=== PATIENT | female | born 1945 | race Caucasian/White ===

== ENCOUNTER 2016-10-02 13:36 | Outpatient (CLI) | payer MEDICARE | END 2016-10-02 13:37 | disposition home or self-care (01) | DX: N20.0 Calculus of kidney (principal) ==

== ENCOUNTER 2017-05-01 15:08 | Outpatient (CLI) | payer MEDICARE ==
--- NOTE | 2017-05-02 11:56 | DEXA Report ---
DEXA SCAN: 05/01/2017 HISTORY: Postmenopausal, osteopenia. TECHNIQUE: Dual energy x-ray absorptiometry (DXA) was performed on a [employer] system. Regions measured are the AP spine, femoral neck, and, if needed, forearm. COMPARISON: None. In accordance with the International Society for Clinical Densitometry (ISCD) guidelines, data from previous exams may be reanalyzed using current recommendations and techniques. This is done to allow a more accurate basis for comparison with the current study. FINDINGS The data for the lumbar spine is as follows: REGION BMD (g/cm/cm) T-SCORE Z-SCORE L1 0.924 -1.7 0.3 L2 1.064 -1.1 0.9 L3 1.152 -0.4 1.6 L4 1.113 -0.7 1.3 TOTAL 1.067 -0.9 1.1 NOTE: All evaluable vertebrae are used for classification. The data for the hip is as follows: REGION BMD (g/cm/cm) T-SCORE Z-SCORE Neck 0.689 -2.5 -0.6 TOTAL 0.740 -2.1 -0.4 NOTE: The femoral neck or total proximal femur, whichever is lowest, is used for classification. IMPRESSION: BONE MINERAL DENSITY IN THE LEFT HIP IS CONSISTENT WITH OSTEOPENIA. FRACTURE RISK IS INCREASED. RECOMMENDATION: Patients with diagnosis of osteoporosis or osteopenia should have regular bone mineral density assessment. For those eligible for Medicare, routine testing is allowed once every 2 years. Testing frequency can be increased for patients who have rapidly progressing disease or for those who are receiving medical therapy to restore bone mass. COMMENT: World Health Organization (WHO) definitions for osteoporosis and osteopenia: NORMAL BMD: T-score at -1.0 or higher, fracture risk is low. OSTEOPENIA BMD: T-score between -1.0 and -2.5, fracture risk is increased. OSTEOPOROSIS BMD: T-score at -2.5 or lower, fracture risk high. National Osteoporosis Foundation recommends: 1. Obtain adequate dietary calcium (at least 1200 mg per day) and vitamin D (400 -800 international units per day). 2. Participate, as appropriate, in regular weightbearing and muscle- strengthening exercise. 3. Avoid tobacco use and reduce alcohol and caffeine intake. 4. For more detailed information see the website at www.NOF.org. MTDD
== END 2017-05-01 15:09 | disposition home or self-care (01) ==
LOC: DI 15:08
PROVIDERS: ATTEND Physician Assistant
DX: M85.88 Other specified disorders of bone density and structure, other site (principal)
CPT/HCPCS: 77080

== ENCOUNTER 2017-05-20 13:45 | Outpatient (CLI) | payer MEDICARE ==
[2017-05-20] MEDS ORDERED: IOPAMIDOL-300 50 ML VIAL ONE (14:00)
[2017-05-20] MEDS ORDERED: IOPAMIDOL-300 100 ML VIAL ONE (14:00)
--- NOTE | 2017-05-21 10:52 | CT Report ---
CT ABDOMEN AND PELVIS WITHOUT CONTRAST: 05/20/2017 CLINICAL INDICATION: Diffuse abdominal pain. COMPARISON: 10/02/2016 TECHNIQUE: Axial CT images of the abdomen and pelvis were obtained without intravenous contrast (pat ient declined). Oral contrast was administered. FINDINGS: Limited evaluation of the lung bases is unremarkable. ABDOMEN: The previously noted 3 mm calcification in the right kidney is stable. No hydronephrosis o r hydroureter is seen. Allowing for the lack of intravenous contrast, the liver, spleen, pancreas, l eft kidney and adrenal glands appear unremarkable. The patient is status post cholecystectomy. No b owel dilatation, free gas, or free fluid is present. No definite abdominal adenopathy is appreciated . PELVIS: The pelvic organs appear unremarkable. No pelvic adenopathy or free fluid is appreciated. Osseous structures demonstrate degenerative changes. IMPRESSION: STABLE 3 MM CALCIFICATION IN THE RIGHT KIDNEY. NO HYDRONEPHROSIS. NO EVIDENT ETIOLOGY FOR PATIENT'S DIFFUSE ABDOMINAL PAIN. In accordance with CT protocol optimization, one or more of the following dose reduction techniques w ere utilized for this exam: automated exposure control, adjustment of mA and/or KV based on patient size, or use of iterative reconstructive technique. JOB #: [id number] EXT JOB #:[id number]
== END 2017-05-20 13:46 | disposition home or self-care (01) ==
LOC: DI 13:45
PROVIDERS: ATTEND Physician Assistant
DX: R10.84 Generalized abdominal pain (principal); N20.0 Calculus of kidney
CPT/HCPCS: 74176; Q9967

== ENCOUNTER 2017-12-03 16:10 | Outpatient (CLI) | payer MEDICARE ==
--- NOTE | 2017-12-04 14:43 | Mammography Report ---
SCREENING DIGITAL MAMMOGRAM: 12/03/2017 CLINICAL INDICATION: A 72-year-old for screening. COMPARISON: 08/2015, 06/2013, 05/2012, 03/2011, 03/2010. FINDINGS: The breasts demonstrate heterogeneously dense fibroglandular parenchyma bilaterally. Coarse and punctate, typically benign calcifications are present. No suspicious masses, clustered microcalcifications, or regions of architectural distortion are identified. IMPRESSION: BENIGN FINDINGS. RECOMMENDATION: Routine annual screening unless otherwise clinically indicated. BIRADS CATEGORY 2 - BENIGN FINDINGS. STANDARD QUALIFYING STATEMENTS 1. This examination was reviewed with the aid of Computed Aided Detection (CAD). 2. A negative x-ray report should not delay biopsy if a dominant or clinically suspicious mass is present. More than 5% of cancers are not identified by x-ray. 3. Dense breasts may obscure an underlying neoplasm. TD: 12/04/2017 14:42 MTDD
== END 2017-12-03 16:11 | disposition home or self-care (01) ==
LOC: DI 16:10
PROVIDERS: ATTEND Internal Medicine
DX: Z12.31 Encounter for screening mammogram for malignant neoplasm of breast (principal)
CPT/HCPCS: 77067

== ENCOUNTER 2018-04-25 09:50 | Outpatient (CLI) | payer MEDICARE ==
[2018-04-25] MEDS ORDERED: IOPAMIDOL-300 50 ML VIAL ONE (09:53)
[2018-04-25] MEDS ORDERED: IOPAMIDOL-300 100 ML VIAL ONE ×2 (09:53→11:17)
[2018-04-25] MEDS ORDERED: IOPAMIDOL-300 50 ML VIAL PO ONE (13:10)
[2018-04-25] MEDS ORDERED: IOPAMIDOL-300 100 ML VIAL IVP ONE (13:10)
--- NOTE | 2018-04-25 15:10 | CT Report ---
Reason: ABDOMINAL PAIN,WT LOSS Procedure Date: 04/25/2018 Accession Number: [id number] / [id number] Procedure: CT - Abdomen/Pelvis W/ CPT Code: FULL RESULT: EXAM: CT ABDOMEN AND PELVIS EXAM DATE: 04/25/2018 01:37 PM. CLINICAL HISTORY: ABDOMINAL Pain, wt LOSS. COMPARISONS: None. TECHNIQUE: Routine helical CT imaging was performed through the abdomen and pelvis. IV contrast: None. Enteric contrast: Yes. Reconstructions: Coronal and sagittal. In accordance with CT protocol optimization, one or more of the following dose reduction techniques were utilized for this exam: automated exposure control, adjustment of mA and/or KV based on patient size, or use of iterative reconstructive technique. FINDINGS: Lung Bases: Unremarkable. Liver: Normal contour. No masses. Gallbladder/Bile Ducts: Cholecystectomy is noted.4 Spleen: Normal. Pancreas: Normal. Adrenal Glands: Normal. Kidneys: There is a likely 2 mm mid right renal stone. No masses or hydronephrosis. Peritoneal Cavity/Bowel: No free fluid, free air or adenopathy. No masses or acute inflammatory process. Pelvic Organs: The bladder and visualized pelvic organs appear within normal limits. Vasculature: No aneurysms or other significant abnormality. Bones: Sclerotic focus in the right bony pelvis is likely a bone island. Otherwise no bone lesions. IMPRESSION: Likely 2 mm nonobstructive right renal stone. Otherwise negative non-IV contrast abdomen and pelvis CT. RADIA
== END 2018-04-25 09:51 | disposition home or self-care (01) ==
LOC: DI 09:50
PROVIDERS: ATTEND Physician Assistant
DX: R10.9 Unspecified abdominal pain (principal); R63.4 Abnormal weight loss
CPT/HCPCS: 74177; Q9967

== ENCOUNTER 2018-11-28 01:30 | Emergency (ER) | payer MEDICARE ==
--- NOTE | 2018-11-28 01:47 | ED Physician Documentation ---
History of Present Illness - Stated complaint Stated Complaint: BLEEDING/POST OP - History obtained from History obtained from: Patient - History of Present Illness Timing: Today Pain level max: 0 Pain level now: 0 - Additonal information Additional information: Patient had colonoscopy at 2:30 this afternoon at the [facility]. Tonight, she had passed gas and this was associated with passage of bright red blood. She had a second such episode and was advised by an after hours advice line to come to the emergency department. Shes otherwise asymptomatic Review of Systems Constitutional: reports: Reviewed and negative Cardiac: reports: Reviewed and negative Respiratory: reports: Reviewed and negative GI: reports: Other (BRBPR). denies: Abdominal Pain, Abdominal Swelling, Nausea, Vomiting, Constipation, Diarrhea, Hematemesis PD PAST MEDICAL HISTORY - Past Medical History Cardiovascular: None Endocrine/Autoimmune: None GI: Other : Incontinence, Chronic bladder infection, Frequency, Kidney stones, Other HEENT: None Psych: Anxiety Derm: None - Allergies Allergies/Adverse Reactions: Allergies Allergy/AdvReac Type Severity Reaction Status Date / Time levofloxacin [From Levaquin] Allergy Rash Verified 11/28/18 01:56 Penicillins Allergy Rash Verified 11/28/18 01:56 Sulfa (Sulfonamide Allergy Rash Verified 11/28/18 01:56 Antibiotics) - Social History Smoking Status: Unknown if ever smoked PD ED PE NORMAL - Vitals Vital signs reviewed: Yes - General General: Alert and oriented X 3, No acute distress, Well developed/nourished - Cardiac Cardiac: RRR, No murmur - Respiratory Respiratory: No respiratory distress, Clear bilaterally - Abdomen Abdomen: Soft, Non tender, Non distended PD ED PE EXPANDED - Rectal Rectal: Heme Occult Pos - QC +, Hemorrhoid, Welder Repair present, Other (Small hemorrhoid without bleeding. No visible bleeding, faint guaiac (+) with hemoccult) Results - Vitals Vitals: Oxygen O2 Source Room air - Labs Labs: Laboratory Tests 11/28/18 11/28/18 01:45 02:40 Hgb 11.8 L Hct 35.2 L Urine Color YELLOW Urine Clarity CLEAR Urine pH 7.0 Ur Specific [place] <=1.005 Urine Protein NEGATIVE Urine Glucose (UA) NEGATIVE Urine Ketones NEGATIVE Urine Occult Blood SMALL H Urine Nitrite NEGATIVE Urine Bilirubin NEGATIVE Urine Urobilinogen 0.2 (NORMAL) Ur Leukocyte Esterase TRACE H Urine RBC 0-5 Urine WBC 0-3 Ur Squamous Epith Cells MOD Squamous H Urine Bacteria Rare Ur Microscopic Review INDICATED Urine Culture Comments NOT INDICATED PD MEDICAL DECISION MAKING - ED course Complexity details: reviewed results, re-evaluated patient, considered differential, d/w patient Departure - Departure Disposition: 01 Home, Self Care Clinical Impression: Lower GI bleed Condition: Good Instructions: ED Hematochezia Stable Follow-Up: GAIL CLEMENTE MD [Primary Care Provider] - Comments: I recommend that you contact the corporate ethics officer's office this morning when they open to get their recommendation regarding follow-up. It will likely depend on how much more, if any, bleeding you have, as well as whether you have symptoms and whether they are concerned about your test results tonight (they can compare to your most recent results). Discharge Date/Time: 11/28/18 03:46
[2018-11-28 02:05] LABS: BILIRUBIN,URINE NEGATIVE (NEGATIVE); GLUCOSE, URINE (UA) NEGATIVE (NEGATIVE); KETONES,URINE (UA) NEGATIVE (NEGATIVE); LEUKOCYTE ESTERASE, URINE TRACE (NEGATIVE); NITRITE,URINE NEGATIVE (NEGATIVE); OCCULT BLOOD,URINE SMALL (NEGATIVE); PROTEIN,URINE NEGATIVE (NEGATIVE); UROBILINOGEN,URINE 0.2 (NORMAL) E.U./dL (NORMAL)
[2018-11-28 02:07] LABS: CLARITY,URINE CLEAR (CLEAR)
[2018-11-28 02:11] LABS: BACTERIA,URINE Rare /HPF (None Seen); RBC,URINE 0-5 /HPF (0-5); SQUAMOUS EPITHELIAL CELL,UR MOD Squamous (<= Few)
[2018-11-28 02:48] LABS: HGB - HEMOGLOBIN 11.8 g/dL (12.0-16.0)
[2018-11-28 03:27] VITALS: BP 141/65
== END 2018-11-28 03:46 | disposition home or self-care (01) ==
LOC: ED 01:30
DX: K62.5 Hemorrhage of anus and rectum (principal); K64.9 Unspecified hemorrhoids; Z98.890 Other specified postprocedural states
CPT/HCPCS: 36415; 81001; 81003; 85014; 85018; 87086; 99283

== ENCOUNTER 2019-01-14 15:55 | Outpatient (CLI) | payer MEDICARE ==
--- NOTE | 2019-01-14 16:33 | XRAY Report ---
Reason: ABNORMAL WEIGHT LOSS Procedure Date: 01/14/2019 Accession Number: [id number] / [id number] Procedure: XR - Chest 2 View X-Ray CPT Code: 34225 FULL RESULT: EXAM: CHEST RADIOGRAPHY EXAM DATE: 01/14/2019 04:02 PM. CLINICAL HISTORY: Abnormal weight loss. COMPARISON: 11/18/2015 3:43 PM. TECHNIQUE: 2 views. FINDINGS: Lungs/Pleura: Slightly coarse lung markings and hyperinflation is seen which may represent COPD changes. There is no consolidation, effusion, or pneumothorax. No vascular congestion. Mediastinum: Heart and mediastinal contours are notable for aortic calcification. Other: Mild pectus deformity is seen. IMPRESSION: No acute cardiopulmonary abnormality demonstrated. RADIA
== END 2019-01-14 15:56 | disposition home or self-care (01) ==
LOC: DI 15:55
PROVIDERS: ATTEND Internal Medicine
DX: R63.4 Abnormal weight loss (principal)
CPT/HCPCS: 71046

== ENCOUNTER 2019-01-22 10:22 | Outpatient (CLI) | payer MEDICARE ==
[2019-01-27 15:06] LABS: ZINC, PLASMA 55 mcg/dL (60-130)
[2019-01-27 17:06] LABS: COPPER 99 mcg/dL (70-175)
== END 2019-01-22 10:23 | disposition home or self-care (01) ==
LOC: LAB.F 10:22
PROVIDERS: ATTEND Internal Medicine
DX: E83.9 Disorder of mineral metabolism, unspecified (principal); E72.11 Homocystinuria
CPT/HCPCS: 36415; 81291; 81599; 82525; 83090; 84630

== ENCOUNTER 2019-05-29 08:00 | Outpatient (CLI) | payer MEDICARE ==
[2019-05-30 09:39] LABS: TRICHOMONAS VAGINALIS DNA POSITIVE (NEGATIVE)
== END 2019-05-29 23:59 | disposition home or self-care (01) ==
LOC: LAB.R 08:00
PROVIDERS: ATTEND Obstetrics & Gynecology
DX: Z11.3 Encounter for screening for infections with a predominantly sexual mode of transmission (principal)
CPT/HCPCS: 87491; 87591; 87661

== ENCOUNTER 2019-05-29 23:08 | Emergency (ER) | payer MEDICARE ==
--- NOTE | 2019-05-29 23:18 | ED Physician Documentation ---
History of Present Illness - Stated complaint Stated Complaint: HIGH BLOOD PRESSURE - Chief complaint Chief Complaint: Cardiac - Additonal information Additional information: This is a 73-year-old female who presents with elevated blood pressure. She was at her OB provider for a general checkup today, in office she was noted to have an elevated blood pressure in the range of 150-170 systolic. Her OB wanted to start her on a blood pressure medication, but patient did not want to at that time, so her OB recommended that she take her blood pressure again and if it is still high she should see her primary care provider or the emergency department. She took it tonight and it was elevated again in the 170s systolic so she came into the emergency department. She denies chest pain, shortness of breath, or any new symptoms. She does have a little bit of soreness in the base of her neck which is been ongoing for weeks, No severe headache, no weakness or numbness, no confusion or vision changes. She has had an MRI scan recently for Chronic vertigo which did not show signs of stroke according to patient. 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 - Allergies Allergies/Adverse Reactions: Allergies Allergy/AdvReac Type Severity Reaction Status Date / Time levofloxacin [From Levaquin] Allergy Rash Verified 05/29/19 23:12 Penicillins Allergy Rash Verified 05/29/19 23:12 Sulfa (Sulfonamide Allergy Rash Verified 05/29/19 23:12 Antibiotics) - Social History Does the pt smoke?: No Smoking Status: Unknown if ever smoked Does the pt drink ETOH?: No Does the pt have substance abuse?: No - Immunizations Immunizations are current?: No Immunizations: No immun - POLST Patient has POLST: No PD ED PE NORMAL - Vitals Vital signs reviewed: Yes - General General: Alert and oriented X 3, No acute distress - HEENT HEENT: PERRL - Neck Neck: Supple, no meningeal sign - Cardiac Cardiac: RRR - Respiratory Respiratory: Clear bilaterally - Abdomen Abdomen: Soft, Non tender, Non distended - Derm Derm: Warm and dry - Extremities Extremities: No deformity - Neuro Neuro: Alert and oriented X 3, drop wire builder 2-12 intact, No motor deficit, No sensory deficit, Normal speech - Psych Psych: Normal mood, Normal affect Results - Vitals Vitals: Vital Signs - 24 hr 05/29/19 05/29/19 05/29/19 23:12 23:29 23:48 Temperature 36.9 C Heart Rate 74 81 74 Respiratory 16 16 Rate Blood Pressure 173/71 H 181/81 H 173/80 H O2 Saturation 100 100 100 Oxygen O2 Source Room air PD MEDICAL DECISION MAKING - ED course Complexity details: considered differential (Hypertension, hypertensive urgency, hypertensive emergency) ED course: Patient presents with asymptomatic hypertension. She presents today because her OB provider told her to be seen if her blood pressure remains elevated. At its highest her systolic blood pressure has been in the 170s, on my examination it is in the 150s. Patient has no signs of hypertensive emergency, no chest pain or shortness of breath or abdominal pain or confusion or vision changes. She does have a slight headache at the base of her neck on the right, but this has been chronic, and she recently had MRI imaging which is not show any emergent findings, and I do not feel that any further work-up or imaging is necessary today. I recommended the patient log her blood pressure several times a day, and follow-up with her primary care provider to discuss starting a antihypertensive if needed. I also discussed return precautions including any neurologic symptoms such as chest pain, shortness of breath or other concerning symptoms. Patient was discharged home in care of her partner. Departure - Departure Disposition: 01 Home, Self Care Clinical Impression: Hypertension Qualifiers: Hypertension type: unspecified Qualified Code(s): I10 - Essential (primary) hypertension Condition: Good Follow-Up: ANGEL DELGADO ARNP [Primary Care Provider] - Within 1 week (For follow up on blood pressure and discussion of whether to start a medication) Comments: You were seen today for elevated blood pressure. Please log your blood pressure 3 times a day, and make appointment with your primary care provider in the next week to review your blood pressure. If it is consistently elevated you may need to start a medication for this. If you develop severe headache, chest pain, trouble breathing, confusion, or any other concerning symptoms, please return to the emergency department. Discharge Date/Time: 05/30/19 00:00
[2019-05-29 23:49] VITALS: BP 173/80
== END 2019-05-30 | disposition home or self-care (01) ==
LOC: ED 23:08
DX: I10 Essential (primary) hypertension (principal); R51 Headache
CPT/HCPCS: 99282; 99284

== ENCOUNTER 2019-06-10 14:24 | Outpatient (CLI) | payer MEDICARE ==
--- NOTE | 2019-06-12 16:08 | DEXA Report ---
Reason: OSTEOPOROSIS Procedure Date: 06/10/2019 Accession Number: [id number] / [id number] Procedure: DEX - Dexa Spine and/or Hip CPT Code: Final Report FULL RESULT: EXAM: Dexa Spine and/or Hip DATE: 06/10/2019 3:04 PM CLINICAL HISTORY: Osteopenia follow-up TECHNIQUE: Dual energy x-ray absorptiometry (DXA) was performed on a [employer] System. Regions measured are the AP Spine, femoral neck, and if needed forearm. COMPARISON: 05/01/2017 In accordance with the International Society for Clinical Densitometry (ISCD) guidelines, data from previous exams may be reanalyzed using current recommendations and techniques. This is done to allow a more accurate basis for comparison with the current study. FINDINGS: The data for the lumbar spine is as follows: BMD (g/cm/cm) T-SCORE Z-SCORE REGION L1 0.889 -2.0 0.4 L2 1.063 -1.1 1.2 L3 1.207 0.1 2.4 L4 1.133 -0.6 1.8 TOTAL 1.081 -0.8 1.5 NOTE: All evaluable vertebrae are used for classification The data for the hip is as follows: BMD (g/cm/cm) T-SCORE Z-SCORE REGION Neck 0.634 -2.9 -0.7 TOTAL 0.673 -2.7 -0.6 NOTE: The femoral neck or total proximal femur, whichever is lowest, is used for classification. DXA RESULTS SUMMARY: Spine SCAN DATE AGE BMD CHANGE VS CHANGE VS PREVIOUS PREVIOUS % 8[birth year]10/2019 [age] 1.081 0.014 1.3 05/01/2017 [age] 1.067 * Denotes significant change at the 95% confidence level. Denotes dissimilar scan types or analysis methods. DXA RESULTS SUMMARY: Hip SCAN DATE AGE BMD CHANGE VS CHANGE VS PREVIOUS PREVIOUS % [birth year]10[birth year]2019 74.0 0.673 -0.067* -9.1* 05[birth year]01/2017 [age] 0.740 * Denotes significant change at the 95% confidence level. Denotes dissimilar scan types or analysis methods. IMPRESSION: THE WHO CLASSIFICATION BASED ON THE INTERNATIONAL REFERENCE STANDARD IS OSTEOPOROSIS, REFERENCE LEFT FEMORAL NECK. THE FRACTURE RISK IS HIGH. THERE HAS BEEN A STATISTICALLY SIGNIFICANT 9.1% DECREASE IN TOTAL LEFT HIP BONE MINERAL DENSITY SINCE 05/01/2017. RECOMMENDATION: Patients with diagnosis of osteoporosis or osteopenia should have regular bone mineral density assessment. For those eligible for Medicare, routine testing is allowed once every 2 years. Testing frequency can be increased for patients who have rapidly progressing disease or for those who are receiving medical therapy to restore bone mass. COMMENT: World Health Organization (WHO) definitions for osteoporosis and osteopenia: NORMAL BMD: T-score at -1.0 or higher, fracture risk is low OSTEOPENIA BMD: T-score between -1.0 and -2.5, fracture risk is increased. OSTEOPOROSIS BMD: T-score at -2.5 or lower, fracture risk is high. National Osteoporosis Foundation recommends: 1. Obtain adequate dietary calcium (at least 1200 mg per day) and vitamin D (400-800 international units per day). 2. Participate, as appropriate, in regular weightbearing and muscle-strengthening exercise. 3. Avoid tobacco use and reduce alcohol and caffeine intake. 4. For more detailed information see the website at www.NOF.org.
== END 2019-06-10 14:25 | disposition home or self-care (01) ==
LOC: DI 14:24
PROVIDERS: ATTEND Physician Assistant
DX: M81.0 Age-related osteoporosis without current pathological fracture (principal)
CPT/HCPCS: 77080

== ENCOUNTER 2019-07-04 13:46 | Outpatient (CLI) | payer MEDICARE ==
--- NOTE | 2019-07-04 19:53 | CT Report ---
Reason: CHRONIC SINUSITIS, HEADACHE Procedure Date: 07/04/2019 Accession Number: [id number] / [id number] Procedure: CT - Sinuses CPT Code: Final Report FULL RESULT: EXAM: CT SINUS EXAM DATE: 07/04/2019 02:00 PM. HISTORY: 74-year-old presenting with chronic sinusitis-type symptoms and headache. Evaluate for intracranial pathology. COMPARISONS: None. TECHNIQUE: Routine multi-axial CT imaging performed through the sinuses. Iodinated IV contrast: None. Reconstructions: Multiplanar reformats. In accordance with CT protocol optimization, one or more of the following dose reduction techniques were utilized for this exam: automated exposure control, adjustment of mA and/or KV based on patient size, or use of iterative reconstructive technique. FINDINGS: RIGHT Frontal: Normal. Ethmoid: Normal. Maxillary: Normal. Sphenoid: Normal. Drainage Pathways: The frontal recess, ostiomeatal complex and sphenoethmoidal recess are patent and normal. LEFT Frontal: Normal. Ethmoid: Small volume frothy material seen within a posterior left ethmoid air cell. Maxillary: Normal. Sphenoid: Normal. Drainage Pathways: The frontal recess, ostiomeatal complex and sphenoethmoidal recess are patent and normal. Nasal Cavity: Normal. No mass or significant anatomic abnormality evident. Osseous Structures: Unremarkable. Orbits: Unremarkable. Other: None. IMPRESSION: 1. Small volume frothy material seen within a posterior left ethmoid air cell that may represent acute sinusitis in the appropriate clinical setting. 2. Visualized major paranasal sinus drainage pathways appear patent. RADIA
== END 2019-07-04 13:47 | disposition home or self-care (01) ==
LOC: DI 13:46
PROVIDERS: ATTEND Otolaryngology
DX: J32.8 Other chronic sinusitis (principal); R51 Headache
CPT/HCPCS: 70486

== ENCOUNTER 2019-07-17 08:00 | Outpatient (CLI) | payer MEDICARE ==
[2019-07-17 21:35] LABS: CANDIDA GROUP DNA NEGATIVE (NEGATIVE); CANDIDA KRUSEI DNA NEGATIVE (NEGATIVE); TRICHOMONAS VAGINALIS DNA NEGATIVE (NEGATIVE)
[2019-07-17 22:39] LABS: TRICHOMONAS VAGINALIS DNA NEGATIVE (NEGATIVE)
== END 2019-07-17 23:59 | disposition home or self-care (01) ==
LOC: LAB.R 08:00
PROVIDERS: ATTEND Obstetrics & Gynecology
DX: Z11.3 Encounter for screening for infections with a predominantly sexual mode of transmission (principal); N95.2 Postmenopausal atrophic vaginitis
CPT/HCPCS: 87491; 87591; 87661; 87801

== ENCOUNTER 2019-07-22 15:38 | Outpatient (CLI) | payer MEDICARE ==
--- NOTE | 2019-07-23 08:53 | XRAY Report ---
Reason: OTHER SPECIFIED RESPIRATORY DISORDERS Procedure Date: 07/22/2019 Accession Number: [id number] / [id number] Procedure: XRS - Chest 2 View X-Ray CPT Code: 02812 Final Report FULL RESULT: EXAM: CHEST RADIOGRAPHY EXAM DATE: 07/22/2019 03:51 PM. CLINICAL HISTORY: Other specified respiratory disorders. COMPARISON: CHEST 2 VIEW 01/14/2019 3:50 PM. TECHNIQUE: 2 views. FINDINGS: Lungs/Pleura: New mild perihilar bronchial wall thickening bilaterally is noted. Otherwise, mild to moderate emphysematous lungs without new focal opacities evident. No pleural effusion. No pneumothorax. Mediastinum: Heart and mediastinal contours are unremarkable. Other: Mild pectus excavatum is again noted, similar to the prior exam. IMPRESSION: New mild perihilar bronchial wall thickening bilaterally, suggesting bronchitis; otherwise, negative for pneumonia or acute cardiopulmonary process. RADIA
== END 2019-07-22 15:39 | disposition home or self-care (01) ==
LOC: DI.S 15:38
PROVIDERS: ATTEND Registered Nurse
DX: J98.8 Other specified respiratory disorders (principal)
CPT/HCPCS: 71046

== ENCOUNTER 2020-03-31 13:08 | Outpatient (CLI) | payer MEDICARE | END 2020-03-31 13:09 | disposition home or self-care (01) | LOC: COV 13:08 | PROVIDERS: ATTEND Family Medicine | DX: R05 Cough (principal); M79.10 Myalgia, unspecified site; R53.83 Other fatigue; R68.83 Chills (without fever); J02.9 Acute pharyngitis, unspecified; Z20.828 Contact with and (suspected) exposure to other viral communicable diseases ==

== ENCOUNTER 2020-06-01 06:40 | Outpatient (CLI) | payer MEDICARE ==
--- NOTE | 2020-06-01 08:14 | Ultrasound Report ---
PROCEDURE: Abdomen Limited INDICATIONS: RUQ PAIN TECHNIQUE: Real-time focused scanning was performed of the abdomen, with image documentation. COMPARISON: CT abdomen FINDINGS: The liver is normal in size, and appears relatively coarse in echotexture likely reflectin g fatty infiltration or mild cirrhotic change. Prior cholecystectomy. Bile ducts are normal in calibe r when this is taken into account with the common duct measuring up to 6.7 mm. Pancreas visualized ap pears normal. Right kidney appears normal. IMPRESSION: Source of current symptomatology is not found. Chronic appearing mild increased echotexture of the li mindy parenchyma perhaps reflecting fatty infiltration versus mild sclerosis. No definite acute disease . Reviewed by: Aakash Lane MD on 06/01/2020 8:12 AM PDT Approved by: Aakash Lane MD on 06/01/2020 8:12 AM PDT Station ID: [id number]
== END 2020-06-01 06:41 | disposition home or self-care (01) ==
LOC: DI 06:40
PROVIDERS: ATTEND Nurse Practitioner Family
DX: R93.2 Abnormal findings on diagnostic imaging of liver and biliary tract (principal)
CPT/HCPCS: 76705

== ENCOUNTER 2020-08-06 15:47 | Outpatient (CLI) | payer MEDICARE | END 2020-08-06 15:48 | disposition home or self-care (01) | LOC: LAB.N 15:47 | PROVIDERS: ATTEND Physician Assistant Medical | DX: B34.9 Viral infection, unspecified (principal); Z20.828 Contact with and (suspected) exposure to other viral communicable diseases ==

== ENCOUNTER 2021-08-27 13:09 | Outpatient (CLI) | payer MEDICARE ==
--- NOTE | 2021-08-29 08:20 | Mammography Report ---
BILATERAL DIGITAL SCREENING MAMMOGRAM 3D/2D WITH EXAGGERATED CC: 08/27/2021 CLINICAL: Routine screening. Comparison is made to exams dated: 08/30/2015 mammogram and 06/23/2013 mammogram - [facility]. There are scattered fibroglandular elements in both breasts. No significant masses, calcifications, or other findings are seen in either breast. There has been no significant interval change. IMPRESSION: NEGATIVE There is no mammographic evidence of malignancy. A 1 year screening mammogram is recommended. This exam was interpreted at Station ID: [id number]. NOTE: For mammograms, a report in lay terms will be sent to the patient. Approximately 15% of breast malignancies will not be visualized mammographically. In the management of a palpable breast mass, a negative mammogram must not discourage biopsy of a clinically suspicious lesion. Electronically Signed By: Rubio Rodas M.D. aty/penrad:08/28/2021 07:23:29 ACR BI-RADS Category 1: Negative 3341F PARENCHYMAL PATTERN: (A) - The breast(s) demonstrate(s) scattered fibroglandular densities. BI-RADS CATEGORY: (1) - 1 RECOMMENDATION: (ANNUAL) - Recommend routine annual screening mammography. [id number] 1 year screening LATERALITY: (B)
== END 2021-08-27 13:10 | disposition home or self-care (01) ==
LOC: DI.S 13:09
PROVIDERS: ATTEND Registered Nurse
DX: Z12.31 Encounter for screening mammogram for malignant neoplasm of breast (principal)

== ENCOUNTER 2021-08-30 15:49 | Outpatient (CLI) | payer MEDICARE ==
--- NOTE | 2021-08-30 17:14 | DEXA Report ---
PROCEDURE: Dexa Spine and/or Hip INDICATIONS: OSTEOPOROSIS TECHNIQUE: Dual energy x-ray absorptiometry (DXA) was performed on a [employer] System. Regions measur ed are the AP Spine, femoral neck, and if needed forearm. COMPARISON: 06/10/2019 FINDINGS: Lumbar Spine: Bone Mineral Density 1.067 g/cm/cm,T score -0.9, normal bone mineral density Left Hip: Bone Mineral Density 0.678 g/cm/cm,T score -2.6, osteoporosis Left Femoral Neck: Bone Mineral Density 0.615 g/cm/cm, T score -3.0, osteoporosis (T score greater or equal to -1.0: NORMAL) (T score from -1.1 to -2.4: OSTEOPENIA) (T score less than or equal to -2.5 to: OSTEOPOROSIS) Impression: OSTEOPOROSIS. Patient is at high risk for fracture. Patients with diagnosis of osteoporosis or osteopenia should have regular bone mineral density assess ment. For those eligible for Medicare, routine testing is allowed once every 2 years. Testing frequ ency can be increased for patients who have rapidly progressing disease or for those who are receivin g medical therapy to restore bone mass. Reviewed by: Rubio Rodas MD on 08/30/2021 5:13 PM PST Approved by: Rubio Rodas MD on 08/30/2021 5:13 PM PST Station ID: [id number]
== END 2021-08-30 15:50 | disposition home or self-care (01) ==
LOC: DI 15:49
PROVIDERS: ATTEND Registered Nurse
DX: M81.0 Age-related osteoporosis without current pathological fracture (principal)

== ENCOUNTER 2021-12-06 15:21 | Outpatient (CLI) | payer MEDICARE ==
--- NOTE | 2021-12-06 16:50 | XRAY Report ---
PROCEDURE: Foot 3 View LT INDICATIONS: PAIN IN LEFT FOOT TECHNIQUE: 3 views of the foot were acquired. COMPARISON: None FINDINGS: Bones: No fractures or dislocations. No suspicious bony lesions. Large plantar calcaneal bone spur. Soft tissues: No tibiotalar joint effusion. Achilles tendon appears normal. IMPRESSION: No fracture. No acute osseous lesion. If symptoms and/or clinical concern for pathology persists, fur ther assessment with repeat plain film radiographs (7-10 days) or advanced imaging (CT, MR, bone scan ) should be considered. Reviewed by: Elen Davis MD, PhD on 12/06/2021 4:48 PM PDT Approved by: Elen Davis MD, PhD on 12/06/2021 4:48 PM PDT Station ID: [id number]
--- NOTE | 2021-12-06 16:51 | XRAY Report ---
PROCEDURE: Ankle 3 View LT INDICATIONS: PAIN IN LEFT ANKLE AND JOINTS TECHNIQUE: 3 views of the ankle were acquired. COMPARISON: None FINDINGS: Bones: No fractures or dislocations. Ankle mortise is normally aligned. No suspicious bony lesions . Large plantar calcaneal bone spur. Mild tibiotalar midfoot osteophytosis. Soft tissues: No tibiotalar joint effusion. Achilles tendon appears normal. IMPRESSION: No acute osseous lesion. If symptoms and/or clinical concern for pathology persists, further assessme nt with repeat plain film radiographs (7-10 days) or advanced imaging (CT, MR, bone scan) should be c onsidered. Reviewed by: Elen Davis MD, PhD on 12/06/2021 4:49 PM PDT Approved by: Elen Davis MD, PhD on 12/06/2021 4:49 PM PDT Station ID: [id number]
== END 2021-12-06 15:22 | disposition home or self-care (01) ==
LOC: DI.S 15:21
PROVIDERS: ATTEND Nurse Practitioner Family
DX: M79.672 Pain in left foot (principal); M25.572 Pain in left ankle and joints of left foot

== ENCOUNTER 2022-08-24 14:27 | Emergency (ER) | payer MEDICARE ==
[2022-08-24 14:42] VITALS: BP 165/85
== END 2022-08-24 15:22 | disposition left against medical advice (07) ==
LOC: ED 14:27
DX: Z53.29 Procedure and treatment not carried out because of patient's decision for other reasons (principal)

== ENCOUNTER 2023-03-08 10:39 | Outpatient (CLI) | payer MEDICARE ==
--- NOTE | 2023-03-08 10:38 | SLEEP CARE CONSULTATION ---
Information from patient questionnaire entered by Kelli Gold. I have reviewed and concur with the information entered by Kelli Gold. This document represents the service I personally performed and the decisions made by me, Nandini Yancey ARNP. History of Present Illness Service Date and Time: 03/08/2023 1020 Reason for follow up: other (7MONTH F/U NO CPAP NO SLEEP STUDY) Prior sleep studies: No HPI additional information: I had the pleasure of seeing ALVERTO ORTIZ today via video telehealth visit regarding the possibility of her having a sleep disorder. Her current complaints are excessive daytime sleepiness, fatigue and frequent night awakenings. She has a history of Parkinson's, anxiety and depression. The patient tells me that she normally goes to bed around 11 pm-12 am, and it takes her approximately 5 minutes to fall asleep. She states she sleep alone and has not been told she snores. She has not been observed to stop breathing in her sleep. She can recall waking up on the average of 3-4 times during the night. Most of the time she wakes up because of bathroom. She has not awakened for her own snoring, choking, and having to gasp for air. There is a lot of tossing and turning in her sleep. Generally she can recall having dreams. She usually wakes up at 0600 to take meds and goes back to sleep until 0800 and does not feel refreshed. She usually does not have a morning headache. During the day she complains of feeling sleepy and fatigued. She has never fallen asleep while driving nor has any accident due to sleepiness. She does occasionally have drowsy driving. She usually naps for about 15-20 minutes at 10 AM and 1-1.5 hours around 2 PM, twice during the day. If she naps, upon falling asleep during the day she denies having vivid dreams. She reports having impaired concentration during the day. There is somniloquy (sleep talking) but no somnambulism (sleep walking). She has never experienced sleep paralysis, cataplexy, or symptoms of restless leg syndrome. Sleep Study - Results Prior sleep studies: No Subjective Initial [place] Sleepiness Scale score: 15 (07/10/2022) Current [place] Sleepiness Scale score: 19 (03/08/23) Allergies and Home Medications Known drug allergies: Yes (as listed) Drug allergies reviewed: Yes Home medication list reviewed: Yes (no changes) Allergy and home medication list: Allergies ciprofloxacin [From Cipro] Allergy (Verified 03/07/23 14:49) Itching gluten Allergy (Verified 03/07/23 14:49) Cramps levofloxacin [From Levaquin] Allergy (Verified 03/07/23 14:49) Rash Penicillins Allergy (Verified 03/07/23 14:49) Rash soy Allergy (Verified 03/07/23 14:49) Cramps Sulfa (Sulfonamide Antibiotics) Allergy (Verified 03/07/23 14:49) Rash Review of Systems Review of systems same as previous: Yes (no changes) Physical Exam Vital signs obtained and entered by: KELLI Fields MA Height: 5 ft 1.5 in (PER PT) Weight: 118 lb (PER PT) Body Mass Index: 21.9 BMI Classification: Normal Impression and Plan 1. Suspected Obstructive Sleep Apnea-Hypopnea Syndrome, as suggested by a history of frequent awakening during the night, unrefreshed sleep, cognitive impairment, and excessive daytime sleepiness. Narrow oropharynx and obesity are common predisposing factors for obstructive sleep apnea-hypopnea syndrome. I recommend proceeding to polysomnography to confirm the diagnosis and to assess severity. If the patient has significant sleep disordered breathing, a manual CPAP titration study will also be performed to find the optimal treatment pressure. I informed the patient of what the sleep studies involve and after some discussion, obtained agreement to proceed. The pathophysiology of obstructive sleep apnea-hypopnea syndrome was discussed with the patient and health risks of cardiovascular and cerebrovascular disease if not treated. Risks of drowsy driving discussed in detail and patient advised to avoid long distance driving and to well puller at the first sign of drowsiness. Patient agreed to plan. * Schedule polysomnography. * Avoid long distance driving or driving when feeling sleepy. * Avoid alcohol, sedative and muscle relaxant around bedtime. * Review instructions provided by trained office staff on how to prepare for the sleep study. * Return for follow-up after sleep study completed. Visit Type: Telehealth Video Video Type: Doximity Patient Location: Home Location of Provider: Office Patient agrees and consents to this telehealth visit type: Yes Patient agrees to have their insurance billed: Yes Time Spent with Patient (minutes): 20 Provider Statement: I spent 100% of the Telehealth Video Call with the patient with greater than 50% spent counseling the patient and coordination of care.
== END 2023-03-08 10:40 | disposition home or self-care (01) ==
LOC: SC 10:39
PROVIDERS: ATTEND Nurse Practitioner Family
DX: G47.10 Hypersomnia, unspecified (principal); R53.83 Other fatigue; G47.8 Other sleep disorders; G20 Parkinson's disease; F41.9 Anxiety disorder, unspecified; F32.A Depression, unspecified; R41.89 Other symptoms and signs involving cognitive functions and awareness

== ENCOUNTER 2023-04-01 19:17 | Outpatient (CLI) | payer MEDICARE | END 2023-04-01 19:18 | disposition home or self-care (01) | LOC: SC 19:17 | PROVIDERS: ATTEND Nurse Practitioner Family | DX: I47.1 Supraventricular tachycardia (principal) | CPT/HCPCS: 95810 ==

== ENCOUNTER 2023-05-29 09:43 | Outpatient (CLI) | payer MEDICARE ==
--- NOTE | 2023-05-30 13:40 | Mammography Report ---
BILATERAL DIGITAL DIAGNOSTIC MAMMOGRAM 3D/2D: 05/29/2023 CLINICAL: Palpable right breast lump by physician. Due for bilateral. Comparison is made to exams dated: 08/27/2021 mammogram, 12/03/2017 mammogram, 08/30/2015 mammogram, an d 06/23/2013 mammogram - [facility]. Both breasts are heterogeneously dense, which may obscure small masses (category c / 51-75% glandular tissue). Of note, there is suboptimal positioning related to patient factors; the best possible images were ob tained. A BB marker was placed in the area of clinical concern in the right breast, and no mammographic abnor mality is identified. No significant masses, calcifications, or other findings are seen in either breast. IMPRESSION: INCOMPLETE: NEEDS ADDITIONAL IMAGING EVALUATION No mammographic evidence of malignancy. Recommend further evaluation with targeted right breast ultra sound, which will immediately follow this exam. Based on the Tyrer Cuzick model (a risk assessment model) the patients lifetime risk is 4.3% and her 10 year risk is 4.3%. According to the ACR, ACS, and NCCN guidelines, an annual breast MRI exam cinthya g with mammogram is recommended if the patients lifetime risk is 20% or greater. This exam was interpreted at Station ID: [id number]. NOTE: For mammograms, a report in lay terms will be sent to the patient. Approximately 15% of breast malignancies will not be visualized mammographically. In the management of a palpable breast mass, a negative mammogram must not discourage biopsy of a clinically suspicious lesion. Electronically Signed By: Anusha Villegas M.D. esb/:05/29/2023 10:56:28 ACR BI-RADS Category 0: Incomplete 3340F PARENCHYMAL PATTERN: (D) - The breast(s) demonstrate(s) heterogeneously dense fibroglandular parenchy ma. BI-RADS CATEGORY: (0) - 0 Ultrasound [id number] Immediate follow-up LATERALITY: (B)
--- NOTE | 2023-05-30 13:40 | Ultrasound Report ---
LIMITED ULTRASOUND OF RIGHT BREAST: 05/29/2023 CLINICAL: Palpable right breast lump by physician. Comparison is made to exams dated: 05/29/2023 mammogram, 08/27/2021 mammogram, 12/03/2017 mammogram, mammogram, 06/23/2013 mammogram, and 05/27/2012 mammogram - [facility]. Ultrasound of the right breast 11 o'clock region was performed. Almanzar scale images of the real-time e xamination were reviewed. No sonographic abnormality is seen in the area of clinical concern in the right breast at 11 o'clock, 8 cm from the nipple. IMPRESSION: NEGATIVE No sonographic abnormality in the area of provider clinical palpable concern. No mammographic or sono graphic evidence of malignancy. Recommend routine annual mammogram screening in 1 year. Clinical follow-up is also recommended, and further management of palpable abnormalities or other foc al signs or symptoms should be based on the results of clinical evaluation. If symptoms persist or be come more focal in nature, further clinical evaluation should be considered. Findings and recommendations were conveyed to the patient during today's evaluation. This exam was interpreted at Station ID: [id number]. Electronically Signed By: Anusha Villegas M.D. esb/:05/29/2023 11:39:07 Ultrasound BI-RADS: 1 Negative BI-RADS CATEGORY: (1) - 1 Mammogram [id number] 1 year screening LATERALITY: (B)
== END 2023-05-29 09:44 | disposition home or self-care (01) ==
LOC: DI 09:43
PROVIDERS: ATTEND Registered Nurse
DX: N63.11 Unspecified lump in the right breast, upper outer quadrant (principal); R92.333 Mammographic heterogeneous density, bilateral breasts

== ENCOUNTER 2023-06-24 07:55 | Outpatient (CLI) | payer MEDICARE ==
--- NOTE | 2023-06-24 19:56 | DEXA Report ---
PROCEDURE: Dexa Spine and/or Hip INDICATIONS: OSTEOPOROSIS TECHNIQUE: Dual energy x-ray absorptiometry (DEXA) was performed in the regions detailed below. COMPARISON: None. FINDINGS: Lumbar Spine: Bone Mineral Density 1.161 g/cm/cm,T score -0.1 previously -0.9. Left Femoral Neck: Bone Mineral Density 0.605 g/cm/cm, T score -3.1. Previously -3.0 Left Total Hip: Bone Mineral Density 0.673 g/cm/cm,T score -2.7. Previously -2.6 (T score greater or equal to -1.0: NORMAL) (T score from -1.1 to -2.4: OSTEOPENIA) (T score less than or equal to -2.5 to: OSTEOPOROSIS) IMPRESSION: Worsening femoral osteopenia Patients with diagnosis of osteoporosis or osteopenia should have regular bone mineral density assess ment. For those eligible for Medicare, routine testing is allowed once every 2 years. Testing frequ ency can be increased for patients who have rapidly progressing disease or for those who are receivin g medical therapy to restore bone mass. Reviewed by: Les Christianson MD on 06/24/2023 6:55 PM [place] Approved by: Les Christianson MD on 06/24/2023 6:55 PM [place] Station ID: [id number]
== END 2023-06-24 07:56 | disposition home or self-care (01) ==
LOC: DI 07:55
PROVIDERS: ATTEND Registered Nurse
DX: M85.80 Other specified disorders of bone density and structure, unspecified site (principal)

== ENCOUNTER 2023-09-04 15:02 | Outpatient (CLI) | payer MEDICARE ==
[2023-09-04] MEDS ORDERED: DIATRIZOATE MEGLU/DIATRIZO SOD 30 ML BOTTLE PO ONE ×2 (15:14→17:19)
--- NOTE | 2023-09-05 12:17 | CT Report ---
PROCEDURE: Abdomen/Pelvis WO INDICATIONS: UNINTENTIONAL WEIGHT LOSS TECHNIQUE: A CT scan of the abdomen and pelvis was performed without the use of intravenous contrast. Images we re recorded and evaluated at appropriate window settings. Reformats: coronal and sagittal. For radiat ion dose reduction, the following was used: automated exposure control, adjustment of mA and/or kV ac cording to patient size. COMPARISON: None. FINDINGS: Image quality: Suboptimal due to lack of intravenous contrast. Lung bases and heart: Small left Bochdalek hernia containing fat. Liver: No contour-deforming mass. Gallbladder and biliary tree: Surgically absent. No biliary dilation, accounting for post-cholecystec hakeem state. Spleen: No splenomegaly. Pancreas: No pancreatic ductal dilation. Adrenals: No adrenal nodule. Kidneys and ureters: No hydronephrosis. No renal cystic lesion which requires follow up. No solid mas s. Punctate nonobstructing right-sided nephrolithiasis. Bowel and peritoneum: No bowel distension. No pathologic free fluid. Lymph nodes: No central or retroperitoneal adenopathy. Vessels: No infrarenal aortic aneurysm. PELVIS Reproductive organs: Unremarkable. Bladder: No wall thickness, accounting for underdistention. Pelvic lymph nodes: No pelvic adenopathy by size criteria. Bones: No aggressive osseous abnormality. Other: Fat within the right canal of [place]uck. IMPRESSION: Somewhat evaluation due to lack of intravenous contrast (patient refused). No findings to explain the patient's unintentional weight loss. Reviewed by: Bernardo Sánchez MD on 09/05/2023 12:16 PM PST Approved by: Bernardo Sánchez MD on 09/05/2023 12:16 PM PST Station ID: [id number]
--- NOTE | 2023-09-05 12:19 | CT Report ---
PROCEDURE: Chest WO INDICATIONS: UNINTENTIONAL WEIGHT LOSS TECHNIQUE: A CT scan of the chest was performed. Intravenous contrast media was not administered. Images were re corded and evaluated at appropriate window settings. Reformats: axial MIP of the chest, coronal and s agittal. For radiation dose reduction, the following was used: automated exposure control, adjustment of mA and/or kV according to patient size. COMPARISON: None. FINDINGS: Image quality: Excellent. Lungs and pleura: No consolidation. No pleural effusions. No pneumothorax. No suspicious pulmonary n odules which require follow up. A few areas of bronchial secretions. Mediastinum: Heart size is normal. No pericardial effusion. No large vessel abnormality. No mediastin al adenopathy by size criteria. Chest wall and lower neck: Thyroid is unremarkable. No axillary or supraclavicular adenopathy by size . Bones: No aggressive osseous abnormality. Upper Abdomen: Unremarkable. IMPRESSION: Unremarkable chest CT. Reviewed by: Bernardo Sánchez MD on 09/05/2023 12:18 PM PST Approved by: Bernardo Sánchez MD on 09/05/2023 12:18 PM PST Station ID: [id number]
== END 2023-09-04 15:03 | disposition home or self-care (01) ==
LOC: DI 15:02
PROVIDERS: ATTEND Registered Nurse
DX: R63.4 Abnormal weight loss (principal)
CPT/HCPCS: 71250; 74176; Q9963